=== PATIENT | male | born 1950 | race Caucasian/White ===

== ENCOUNTER 2023-05-18 09:05 | Outpatient (CLI) | payer MEDICARE, BC, SELFPAY | END 2023-05-18 09:06 | disposition home or self-care (01) | LOC: AMB 05-23 09:24 | PROVIDERS: PCP Family Medicine; Visit Provider Family Medicine | DX: M62.81 Muscle weakness (generalized) (principal) | CPT/HCPCS: A0998 ==

== ENCOUNTER 2023-05-25 09:02 | Outpatient (CLI) | payer MEDICARE, BC, SELFPAY ==
--- OUTSIDE RECORDS SUMMARY | 2023-05-26 10:55 | XMS_ITS | Clinical Summary ---
Author Name Unknown Organization [employer] [facility] Address [place], [place] [address] Care Team Providers Care Corn Husker Machine Operator Name Role Phone Meng Murray MD Primary Care Provider Lis Roberts RD Unavailable [phone] Unavailable [phone] Allergies Active Allergy Reactions Criticality Noted Date [...] mouth once daily. 0 07/29/19 17 Active Kngui-5-YBN-EPA-Fi sh Oil (FISH OIL) 1,000 mg (120 mg-180 mg) capIndications:[facility] care maintenance Daily. 0 07/29/19 17 Active [...] be used to read blood sugars per assistant professor of dietetics's directions. 6 Each 3 04/23/20 23 Active [...] Encounters Date Type Department Care Team Description 05/25/2023 Telephone [facility] [address] [place] [address] Meng Murray MD Prior Authorization (continuous glucose monitor SENSOR KIT (FreeStyle Hafsa 14 Day Sensor)) 05/22/2023 Refill [facility] [address] [place] [address] Meng Murray MD Refill Request (Warfarin) 05/07/2023 8:00 AM GREENHOUSE TECHNICIAN Orders Only [facility] [address] [place] [address] [facility] 05/07/2023 Anticoagulation (warfarin) [facility] [address] [place] [address] [facility] Anticoagulation (Lab only/) 05/07/2023 Travel 05/06/2023 9:00 AM GREENHOUSE TECHNICIAN Patient Outreach [address] [place] [address] Diabetes (DM education) 05/06/2023 Travel 04/23/2023 3:45 PM GREENHOUSE TECHNICIAN Office Visit [address] [address] Meng Murray MD Coordination Problems (Has had 2 falls since the beginning of March, two which pretty worrisome. Will get a wobbly sensation in his legs; a weakness. ) 04/22/2023 Travel 04/22/[address] [address] Meng Murray MD Refill Request (Freestyle Hafsa 14 Day Sensor) 04/06/2023 7:40 AM GREENHOUSE TECHNICIAN Orders Only [address] [address] Lab[facility] [place] 04/06/2023 Anticoagulation (warfarin) [facility] [address] [place] [address] 1[facility] Anticoagulation 04/06/2023 Travel 04/01/2023 Travel 03/23/2023 8:10 AM GREENHOUSE TECHNICIAN Orders Only [address] [address] Lab[facility] [place] 03/23/2023 Anticoagulation (warfarin) [facility] [address] [place] [address] 1[facility] Anticoagulation 03/23/2023 Travel 02/24/2023 Refill [facility] [address] [place] [address] Meng Murray MD Refill Request (Warfarin) 02/23/2023 8:20 AM CDT Orders Only [address] [address] Lab[facility] [place] 02/23/2023 Anticoagulation (warfarin) [facility] [address] [place] [address] 1[facility] Anticoagulation 02/23/2023 Travel from Last 3 Months Immunizations Name Administration Dates Next Due AMB Influenza, IIV3 (Age >=3 years)(Flu Clinic Only) 01/29/2009 COVID-19 vaccine (Pfizer-Bio NTech 30mcg/0.3mL) 12YO+ BIVALENT PF, MDV 01/13/2022 COVID-19 vaccine (Pfizer-Bio NTech 30mcg/0.3mL) PF, MDV 04/08/2021 Influenza A [...] Comments Blood Pressure 154/73 04/23/2023 3:34 PM GREENHOUSE TECHNICIAN Pulse 94 04/23/2023 3:34 PM GREENHOUSE TECHNICIAN Temperature 36.2 ??C (97.1 ??F) 04/08/2021 1 0:44 AM GREENHOUSE TECHNICIAN Respiratory Rate 20 07/31/2010 8:30 AM CDT Oxygen Saturation 97% 04/23/2023 3:34 PM GREENHOUSE TECHNICIAN Inhaled Oxygen Concentration - - Weight 106.8 kg (235 lb 6.4 oz) 04/23/2023 3:34 PM GREENHOUSE TECHNICIAN Height 179.1 cm (5' 10.5) 04/23/2023 3:34 PM CS T Body Mass Index 33.3 04/23/2023 3:34 PM GREENHOUSE TECHNICIAN Plan of Treatment Upcoming Encounters Date Type Department Care Team (Late st Contact Info) Description 06/01/2023 9:00 AM GREENHOUSE TECHNICIAN Phone Office Visit [address] [facility] [place] [address] [place] [address] 06/01/2023 2:55 PM GREENHOUSE TECHNICIAN Office Visit [facility] [address] [place] [address] Meng Murray MD [address] [place] [address] 06/08/2023 8:45 AM GREENHOUSE TECHNICIAN Orders Only [facility] [address] [place] [address] Lab, [facility] 06/11/2023 9:00 AM GREENHOUSE TECHNICIAN Telemedicine [facility] [address] [place] [address] Fredy Cespedes MD [address] [place] [address] 07/13/2023 8:00 AM CDT Orders Only [facility] [address] [place] [address] [place] 07/15/2023 8:00 AM CDT Office Visit [facility] [address] [place] [address] Meng Murray MD [address] [place] [address] Health Maintenance Due Date Last Done Comments [...] Diagnosis Comments INR,POCT Routine 05/07/2023 8:04 AM GREENHOUSE TECHNICIAN History of DVT (deep vein thrombosis) Anticoagulation monitoring, INR range 1.5-2.5 INR,POCT Routine 04/06/2023 7:49 AM GREENHOUSE TECHNICIAN History of DVT (deep vein thrombosis) Anticoagulation monitoring, INR range 1.5-2.5 INR,POCT Routine 03/23/2023 8:22 AM GREENHOUSE TECHNICIAN History of DVT (deep vein thrombosis) Anticoagulation monitoring, INR range 1.5-2.5 INR,POCT Routine 02/23/2023 8:15 AM CDT History of DVT (deep vein thrombosis) Anticoagulation monitoring, INR range 1.5-2.5 from Last 3 Months Results * (ABNORMAL) INR,POCT (05/07/2023 8:04 AM GREENHOUSE TECHNICIAN) Only the most recent of4 resultswithin the time period is included. INR 1.9(H) <1.3 05/07/2023 8:06 AM GREENHOUSE TECHNICIAN [facility] Blood BLOOD SPECIMEN / Unknown 05/07/2023 8:04 AM GREENHOUSE TECHNICIAN 05/07/2023 8:06 AM GREENHOUSE TECHNICIAN Narrative [facility] - 05/07/2023 8:06 AM GREENHOUSE TECHNICIAN ?Therapeutic Range 2.0-3.0 for most anticoagulated patients 2.5-3.5 or 4.0 for high risk patients Meng Murray MD LABORATORY [facility] [address] [place] [address], from Last 3 Months Care Teams Corn Husker Machine Operator Relationship Specialty Start Date End Date Meng Murray MD [address] [place] [address] PCP - General Family Practice 07/02/[address] [place] [address] Calcine Furnace Tender Piercing Specialist 10/23/[address] [place] [address] Calcine Furnace Tender Piercing Specialist 05/06/23 11/02/23
== END 2023-05-25 09:03 | disposition home or self-care (01) ==
LOC: AMB 05-26 10:52
PROVIDERS: PCP Family Medicine; Visit Provider Family Medicine
DX: S29.9XXA Unspecified injury of thorax, initial encounter (principal); W10.9XXA Fall (on) (from) unspecified stairs and steps, initial encounter; Y92.59 Other trade areas as the place of occurrence of the external cause
CPT/HCPCS: A0425; A0429

== ENCOUNTER 2023-05-25 09:27 | Emergency (ER) | payer MEDICARE, BC, SELFPAY ==
[2023-05-25 09:33] VITALS: BP 127/70; PULSE 94; RESP 18; TEMP 36.1; O2SAT 93; BMI 32.8
--- NOTE | 2023-05-25 10:12 | ED.GENADULT ---
HPI - General Adult General Chief complaint: Fall/Minor Trauma Stated complaint: Fall Time Seen by Provider: 05/25/23 09:42 Source: patient Mode of arrival: EMS Limitations: no limitations History of Present Illness HPI narrative: 73-year-old male coming in today complaining of a fall. Patient states that he has been falling frequently. Today he stumbled on the steps going into the garage. He states that he started falling forward so he put his hand out into a pile of Bhavesh decorations and he was able to push himself back up against the wall. Once his back hit the wall he slid down to the floor. He did not hit his head or lose consciousness. He did lacerated the palm of his hand. He denies other injury. However, EMS was called because once the patient is down he is unable to get back up again. He states that he fell last week did not suffer any injuries, EMS was called at that time as well just to help get him up again. His is wondering if there is someone that can come into their home to assess for things that they can do to make the home safer for him. Related Data Home Medications Medication Instructions Recorded Confirmed atorvastatin 40 mg tablet 40 mg PO DAILY 05/25/23 05/25/23 insulin glargine 100 unit/mL (3 50 unit subcut QPM 05/25/23 05/25/23 mL) subcutaneous pen (Lantus Solostar U-100 Insulin) losartan 50 mg tablet 50 mg PO DAILY 05/25/23 05/25/23 sertraline 100 mg tablet 100 mg PO BID 05/25/23 05/25/23 warfarin 5 mg tablet PO 05/25/23 Allergies Allergy/AdvReac Type Severity Reaction Status Date / Time aspirin Allergy Verified 05/25/23 09:39 doxycycline Allergy Verified 05/25/23 09:39 morphine Allergy Verified 05/25/23 09:39 Review of Systems Status of ROS: Reports: 10 or more systems reviewed and unremarkable except as noted in History and below [facility] Social History Smoking Status: Never smoker Do you use any of these nicotine containing products: None How often do you have a drink containing alcohol: never How often do you have six or more drinks on one occasion: Never AUDIT-C Alcohol total score: 0 Non-prescribed substance use: denies use Exam Narrative: Exam Narrative: Well-nourished well-developed patient in no acute distress. Alert and oriented x3. Answers questions appropriately. Mood and affect are appropriate. Thoughts are goal oriented and rational. No tangential or magical thinking noted. Patient speaks in full sentences without needing to catch his breath. Speech is not slurred or pressured. GCS is 15. HEENT: Normocephalic atraumatic. Pupils are equally round reactive to light. Extraocular muscles are intact. Conjunctivae are moist without any icterus noted. Moist mucous membranes. Neck is soft. Extremities: Patient has she 2 cm laceration on the medial palmar surface of the right hand. He has full range of motion of all his fingers. The laceration extends into the subcutaneous tissue but does not penetrate through the subcutaneous tissue. There are no tendons or bones visible. Skin: Well perfused without any obvious rashes. He does have scattered bruising. Back: Deferred, patient did not feel this was necessary. Const: Vital Signs, click to edit/add: Vital Signs - 24 hr 05/25/23 09:33 05/25/23 10:40 Temperature 97.0 F L Pulse Rate [Right Pulse Oximeter] 94 92 Respiratory Rate 18 14 Blood Pressure [Ri ght Upper Arm] 127/70 121/67 Pulse Oximetry 93 Oxygen Delivery Me thod Room Air Course Course ED Course: The laceration was anesthetized with lidocaine. The wound was explored and cleaned. Wound sutured with 3-0 Ethilon interrupted sutures. Vital Signs Vital signs: Initial Vital Signs Temperature 97.0 F L 05/25/23 09:33 Temperature Source Temporal Artery Scan 05/25/23 09:33 Pulse Rate 94 05/25/23 09:33 Respiratory Rate 18 05/25/23 09:33 Blood Pressure 127/70 05/25/23 09:33 Blood Pressure Mean 89 05/25/23 09:33 Blood Pressure Position Sitting 05/25/23 09:33 Pulse Oximetry 93 05/25/23 09:33 Oxygen Delivery Method Room Air 05/25/23 09:33 Vital Signs Temperature 97.0 F L 05/25/23 09:33 Pulse Rate 94 05/25/23 09:33 Respiratory Rate 18 05/25/23 09:33 Blood Pressure 127/70 01/29/24 09:33 Pulse Oximetry 93 05/25/23 09:33 Oxygen Delivery Method Room Air 05/25/23 09:33 Temperature 97.0 F L 05/25/23 09:33 Pulse Rate 92 05/25/23 10:40 Respiratory Rate 14 05/25/23 10:40 Blood Pressure 121/67 05/25/23 10:40 Pulse Oximetry 93 05/25/23 09:33 Oxygen Delivery Method Room Air 05/25/23 09:33 Medical Decision Making MDM Narrative Medical decision making narrative: 73-year-old male with frequent falls, laceration to the palm of the hand sutured per above. Tetanus shot updated in 2021. director workers compensation consult to discussed safety in the home. Discharge Plan Discharge Clinical Impression: Laceration, Fall Patient Disposition: Home w/ Parent or Adult Condition: Improved Additional Instructions: Keep wound clean and dry. Okay to shower like you normally would, however, do not soak the hand. Suture should be removed in approximately 1 week with your primary care provider. Look for signs of infection which include increasing redness or purulent drainage from the wound. If this occurs return to the ER or see your primary care provider right away. Change dressing once daily. Change dressing more frequently if it becomes dirty. Prescriptions: No Action losartan 50 mg tablet 50 mg PO DAILY atorvastatin 40 mg tablet 40 mg PO DAILY sertraline 100 mg tablet 100 mg PO BID warfarin 5 mg tablet PO insulin glargine [Lantus Solostar U-100 Insulin] 100 unit/mL (3 mL) insulin pen 50 unit subcut QPM Follow Up/Referrals: Meng Murray MD [Primary Care Provider] - Stand Alone Forms: [employer] Info Instructions
--- OUTSIDE RECORDS SUMMARY | 2023-05-25 10:18 | XMS_ITS | Clinical Summary ---
Author Name Unknown Organization [facility] Address [place], [place] [address] Care Team Providers [employer] Name Role Phone Meng Murray MD Primary Care Provider Lis Roberts RD Unavailable Lis Roberts RD Unavailable [phone] Allergies Active Allergy Reactions Criticality Noted Date Comments Aspirin Aspirin Contraindica tion (for reporting) 05/11/2006 Doxycycline Vomiting 11/29/2007 Morphine Diaphoresis,GI Upset 01/01/2007 Medications Medication Sig Dispensed Refills Start Date End Date Status KENNY 180 MG TAB take 1 tablet (180 mg) by oral route once daily 30 11 09/12/19 09 Active cholecalciferol (VITAMIN D) 1,000 unit capsule Take 2 capsules by mouth once daily. 0 08/01/19 11 Active multivitamin (MVI) tablet Take 2 tablets by mouth once daily. 0 07/29/19 17 Active [id number]-[id number]-[id number] sh Oil (FISH OIL) 1,000 mg (120 mg-180 mg) capIndications:[facility] care maintenance Daily. 0 07/29/19 17 Active flash glucose scanning reader (FREESTYLE HAFSA 14 DAY READER) miscIndications:Ty pe 2 diabetes mellitus with complication, with long-term current use of insulin (HC) As directed. 1 Each 0 10/05/19 19 Active LORazepam (ATIVAN) 0.5 mg tabIndications:Gen eralized anxiety disorder TAKE ONE TABLET BY MOUTH ONCE DAILY NEEDED FOR SEVERE ANXIETY 20 Tablet 0 04/15/20 21 Active CPAPIndications:OS A (obstructive sleep apnea) CPAP machine for home use at pressure 13 cm/H2O, full face mask x1/3month with a full face cushion x1/mo 1 Each 11 04/16/20 22 Active fluticasone (50 mcg per actuation) nasal solution (FLONASE)Indicatio ns:Allergy, sequela INSTILL 1 SPRAY INTO BOTH NOSTRILS ONCE DAILY 48 g 1 11/01/19 23 Active SUMAtriptan (IMITREX) 25 mg tabletIndications: Migraine without status migrainosus, not intractable, unspecified migraine type TAKE 1 TABLET BY MOUTH EVERY 2 HOURS IF NEEDED FOR MIGRAINE. MAX DOSE: 200MG PER 24 HRS. 27 Tablet 1 11/27/19 23 Active atorvastatin (LIPITOR) 40 mg tabletIndications: Type 2 diabetes mellitus with complication, with long-term current use of insulin (HC),Hyperlipidemi a, unspecified hyperlipidemia type Take 1 Tablet (40 mg) by mouth once daily. 90 Tablet 3 01/15/20 23 Active HumaLOG KwikPen Insulin 100 unit/mL inpn penIndications:Typ e 2 diabetes mellitus with complication, with long-term current use of insulin (HC) Product desired: HUMALOG KWIKPEN INJECT 7 UNITS SUBCUTANEOUSLY PER 15GMS OF CARB AT BREAKFAST/4 UNITS PER 15GMS AT LUNCH/ SUPPER PLUS CORRECTION SCALE. MAX 120 UNITS TOTAL PER DAY 60 mL 3 01/15/20 23 Active losartan (COZAAR) 50 mg tabletIndications: Hypertension, unspecified type Take 1 Tablet (50 mg) by mouth once daily. 90 Tablet 3 01/15/20 23 Active sertraline (ZOLOFT) 100 mg tabletIndications: Acute deep vein thrombosis (DVT) of tibial vein of both lower extremities (HC),Anxiety and depression 2 tabs oral every day 180 Tablet 3 01/15/20 23 Active pen needle, diabetic (UltiCare Pen Needle) 31 gauge x 5/16Indications:I nsulin dependent type 2 diabetes mellitus (HC) USE FOR ADMINISTERING INSULIN AT HOME 4 TIMES DAILY OR DIRECTED 400 Each 3 01/19/20 23 Active hyoscyamine sublingual (LEVSIN SL) 0.125 mg sublIndications:Ir ritable bowel syndrome with diarrhea TAKE 1 TABLET BY MOUTH EVERY 4 HOURS IF NEEDED FOR COLIC 100 Tablet 2 02/06/20 23 Active continuous glucose monitor SENSOR KIT (FreeStyle Hafsa 14 Day Sensor)Indications :Type 2 diabetes mellitus with complication, with long-term current use of insulin (HC) To be used to read blood sugars per automobile or truck rental dispatcher's directions. 6 Each 3 04/23/20 23 Active Lantus Solostar U-100 Insulin 100 unit/mL (3 mL) penIndications:Typ e 2 diabetes mellitus with complication, with long-term current use of insulin (HC) Inject 50 units subcutaneous before bedtime. Product desired: LANTUS SOLOSTAR 60 mL 1 04/23/20 23 Active FreeStyle Hafsa 3 Sensor for continuous blood glucose monitor (CGM)Indications:T ype 2 diabetes mellitus with complication, with long-term current use of insulin (HC) Wear each for 14 days 2 Each 12 05/06/19 24 Active warfarin (COUMADIN) 5 mg tabletIndications: History of DVT (deep vein thrombosis),Antico agulation monitoring, INR range 1.5-2.5,Acute deep vein thrombosis (DVT) of tibial vein of both lower extremities (HC),Deep vein thrombosis (DVT) of both lower extremities, unspecified chronicity, unspecified vein (HC) TAKE 1/2 TABLET (2.5MG) BY MOUTH EVERY THURSDAY AND THURSDAY and 1 TABLET(5MG) ALL OTHER DAYS IN THE EVENING OR DIRECTED 80 Tablet 1 05/22/19 24 Active warfarin (COUMADIN) 5 mg tabletIndications: History of DVT (deep vein thrombosis),Antico agulation monitoring, INR range 1.5-2.5,Acute deep vein thrombosis (DVT) of tibial vein of both lower extremities (HC),Deep vein thrombosis (DVT) of both lower extremities, unspecified chronicity, unspecified vein (HC) Take by mouth 2.5 mg (5 mg x 0.5 tablet) every Thu, Thu; 5 mg (5 mg x 1 tablet) all other days in the evening OR as directed 78 Tablet 0 02/25/20 23 024 Discontinued Active Problems Problem Noted Date Diagnosed Date Anxiety and depression 01/14/2023 Type 2 diabetes mellitus wit h complication, with long-term current use of insulin 10/07/2021 History of DVT (deep vein thrombosis) 07/08/2021 Chronic insomnia 01/14/2019 MIGUEL 12/17/2007 AHI-50 01/08/2017 Deep vein thrombosis (DVT) of both lower extremi ties 05/05/2016 Anticoagulation monitoring, INR range 1.5-2.5 Overview: Target range 1.8-2.3 Erectile dysfunction 12/12/2009 Mixed hyperlipidemia 05/22/2009 Primary hypertension 05/22/2009 IRRITABLE BOWEL SYNDROME 12/05/2004 Migraine, unspecified, witho ut mention of intractable migraine without mention of status migrainosus Resolved Problems Problem Noted Date Diagnosed Date Resolved Date Seasonal affective disorder 03/11/2021 01/14/2023 Short sleeper 03/13/2020 07/02/2020 Acute deep vein thrombosis ( DVT) of tibial vein of both lower extremities 07/27/2017 Hand pain 05/02/2013 01/18/2020 Gastritis 03/09/2013 10/07/2021 Overview: EGD 02/2013 gastritis Vitamin D deficiency 03/06/2010 021 Deep vein thrombosis of bila teral lower extremities 02/11/2008 01/18/2020 Sleep Apnea 12/17/2007 AHI-50 12/24/2007 01/08/2017 Acute prostatitis 07/23/2007 11/02/2007 Acute prostatitis 07/23/2007 01/18/2020 DIVERTICULITIS COLON 12/05/2004 021 Anemia 12/05/2004 01/18/2020 DIABETES 03/18/2002 10/07/2021 Generalized anxiety disorder 01/14/2023 Encounters Date Type Department Care Team Description 05/22/2023 Refill [facility] [address] [place] [address] Meng Murray MD Refill Request (Warfarin) 05/07/2023 8:00 AM TATTOO AND BODY ARTIST Orders Only [facility] [address] [place] [address] [place] [facility] 05/07/2023 Anticoagulation (warfarin) [facility] [address] [place] [address] 1[facility] [place] [facility] Anticoagulation (Lab only/) 05/07/2023 Travel 05/06/2023 9:00 AM TATTOO AND BODY ARTIST Patient Outreach [facility] [address] [address] Diabetes (DM education) 05/06/2023 Travel 04/23/2023 3:45 PM TATTOO AND BODY ARTIST Office Visit [facility] [address] [place] [address] Meng Murray MD Coordination Problems (Has had 2 falls since the beginning of March, two which pretty worrisome. Will get a wobbly sensation in his legs; a weakness. ) 04/22/2023 Travel 04/22/2023 Refill [facility] [address] [place] [address] Meng Murray MD Refill Request (Freestyle Hafsa 14 Day Sensor) 04/06/2023 7:40 AM TATTOO AND BODY ARTIST Orders Only [facility] [address] [place] [address] Lab[facility] [place] [facility] 04/06/2023 Anticoagulation (warfarin) [facility] [address] [place] [address] 1[facility] [place] [facility] Anticoagulation 04/06/2023 Travel 04/01/2023 Travel 03/23/2023 8:10 AM TATTOO AND BODY ARTIST Orders Only [facility] [address] [place] [address] Lab[facility] [place] [facility] 03/23/2023 Anticoagulation (warfarin) [facility] [address] [facility] [address] 1[facility] [place] [facility] Anticoagulation 03/23/2023 Travel 02/24/2023 Refill [facility] [address] [place] [address] Meng Murray MD Refill Request (Warfarin) 02/23/2023 8:20 AM CDT Orders Only [facility] [address] [place] [address] Lab[facility] [place] [facility] 02/23/2023 Anticoagulation (warfarin) [facility] [address] [place] [address] 1[facility] [place] [facility] Anticoagulation 02/23/2023 Travel from Last 3 Months Immunizations Name Administration Dates Next Due AMB Influenza, IIV3 (Age >=3 years)(Flu Clinic Only) 01/29/2009 COVID-19 vaccine (Pfizer-Bio NTech 30mcg/0.3mL) 12YO+ BIVALENT PF, MDV 01/13/2022 COVID-19 vaccine (Buck-Bio NTech 30mcg/0.3mL) PF, MDV 04/08/2021 Influenza A (H1N1), Inactivated 04/13/2009 Influenza A (H1N1), Inactiva ana laura (Age >=3 Years) 04/13/2009 Influenza, High-dose Inactivated 016,2015,01/03/2015,2013 Influenza, High-dose Quadriv alent Inactivated 02/06/2022 Influenza, IIV3 (Age 6-35 mos) 02/17/2011,2009 Influenza, IIV3 (Age >=3 years) 01/11/20 13,01/27/2012,02/17/2011,2009,01/29/2009,02/10/2008,03/02/2007,1 05/07/2005,02/10/2005,02/10/2004, 003 Influenza, Inactivated AIIV4 (Age 65+ Years) Preserv Free 01/14/2023,01/07/2021,01/18/2020 Influenza, Inactivated IIV3 (Age 65+ Years) Preserv Free 01/05/2019,01/05/2018,01/13/2017 Pneumococcal Conj 20-valent (Prevnar 20) 01/14/2023 Pneumococcal Poly,23-Valent (Pneumovax) 04/04/2013,05/28/2000,02/04/1999 Pneumococcal conj 13-Valent (Prevnar 13) 07/13/2014 Td (Age >=7 Years) 10/07/2021,07/16/2000 Tdap 03/18/2011 Zoster (Shingrix-RZV, recombinant) 07/14/2018, Zoster (Zostavax-ZVL, live) 09/09/2010 Family History Medical History Relation Name Comments Allergies Brother 1 3 brothers Cancer Brother 2 kidney Atrial fibrillation Brother 3 Allergies Daughter Diabetes Father Other Father of multipl e myeloma at 72 Allergies Mother Other Mother chronic lymphoc ytic leukemia Genetic Other Father- multipl e myeloma~DM~Mother- CLL Diabetes Paternal Grandmother Allergies Son Psychiatric illness Son depressi on Relation Name Status Comments Brother 1 3 brothers Alive Brother 2 Alive Brother 3 Alive Daughter Alive Father Maternal Aunt Maternal Grandfather Maternal Grandmother Maternal Uncle Mother Alive Other Paternal Aunt Paternal Grandfather Paternal Grandmother Paternal Uncle Son Alive Social History Tobacco Use Types Packs/Day Years Used Date Smoking Tobacco: Former Cigarettes 1 0 04/27/1966 - 04/27/1967 Smokeless Tobacco: Never Tobacco Cessation:Counseling Given: No Comments:8 months when 18 years old Alcohol Use Standard Drinks/Week Comments No 0 (1 standard drink = 0.6 oz pur e alcohol) PHQ-2 Answer Date Recorded PHQ-2 TOTAL SCORE 4 01/14/2023 Social Connections Answer Date Recorded Frequency of Communication with Friends and Fami ly 0 04/22/2023 Financial Resource Strain Answer Date R ecorded Difficulty of Paying Living Expenses 3 04/22/2023 Difficulty of Paying Living Expenses Not on file 04/22/2023 Food Insecurity Answer Date Recorded Worried About Running Out of Food in the Last Ye ar 1 04/22/2023 Transportation Needs Answer Date Record ed Lack of Transportation (Medical) 1 04/22/2023 Housing Stability Answer Date Recorded Unable to Pay for Housing in the Last Year 1 04/22/2023 Sex and Gender Information Value Date Recorded Sex Assigned at Not on file Gender Identity Not on file Sexual Orientation Not on file Obstetrics History Last Filed Vital Signs Vital Sign Reading Time Taken Comments Blood Pressure 154/73 04/23/2023 3:34 PM [employer] ARTIST Pulse 94 04/23/2023 3:34 PM [employer]ATT[employer] AND BODY ARTIST Temperature 36.2 ??C (97.1 ??F) 04/08/2021 1 0:44 AM TATTOO AND BODY ARTIST Respiratory Rate 20 07/31/2010 8:30 AM CDT Oxygen Saturation 97% 04/23/2023 3:34 PM TATT[employer] AND BODY ARTIST Inhaled Oxygen Concentration - - Weight 106.8 kg (235 lb 6.4 oz) 04/23/2023 3:34 PM TATTOO AND BODY ARTIST Height 179.1 cm (5' 10.5) 04/23/2023 3:34 PM CS T Body Mass Index 33.3 04/23/2023 3:34 PM TATTOO AND BODY ARTIST Plan of Treatment Upcoming Encounters Date Type Department Care Team (Late st Contact Info) Description 06/01/2023 9:00 AM TATTOO AND BODY ARTIST Phone Office Visit [facility] [address] [place] [address] Lis Roberts, RD [address] [address] 06/08/2023 8:45 AM TATTOO AND BODY ARTIST Orders Only [facility] [address] [place] [address] [place] 06/11/2023 9:00 AM TATT[employer] AND BODY ARTIST Telemedicine [facility] [address] [place] [address] Fredy Cespedes MD [address] [place] [address] 07/13/2023 8:00 AM CDT Orders Only [facility] [address] [place] [address] [place] 07/15/2023 8:00 AM CDT Office Visit [facility] [address] [place] [address] Meng Murray MD [address] [place] [address] Health Maintenance Due Date Last Done Comments Colonoscopy through age 75 09/01/2013 03/04/2013 Medicare Wellness for age 65+ 01/14/2024, 01/13/2022, 04/13/2020, Additional history exists Depression screening for age 12+ 01/18/2024 01/17/2023, 01/16/2023, 01/14/2023, Additional history exists BMI (ht and wt on same day) for age 18+ 04/23/2024 04/23/2023, 01/14/2023, 01/13/2022, Additional history exists Lipids for age 45-75 01/13/2028 01/12/2023, 01/08/2022, 01/07/2021, Additional history exists Tetanus booster 10/08/2031 10/07/2021, 02/26, 07/16/2000 Tdap Completed 03/18/2011 Zoster (shingles) series for age 50+ Completed 07/14/2018, 03/02/2018, 09/09/2010 Hepatitis C screening for ag e 18-79 Completed 02/08/2019 Influenza for age 65+ Completed 01/14/2023 , 02/06/2022, 01/07/2021, Additional history exists Pneumococcal series for age 65+ Completed 01/14/2023, 07/13/2014, 04/04/2013, Additional history exists COVID-19 vaccine series Completed 03/02/20, 01/13/2022, 09/10/2021, Additional history exists Procedures Procedure Name Priority Date/Time Associated Diagnosis Comments INR,POCT Routine 05/07/2023 8:04 AM T[employer] AND BODY ARTIST History of DVT (deep vein thrombosis) Anticoagulation monitoring, INR range 1.5-2.5 INR,POCT Routine 04/06/2023 7:49 AM TATT[employer] AND BODY ARTIST History of DVT (deep vein thrombosis) Anticoagulation monitoring, INR range 1.5-2.5 INR,POCT Routine 03/23/2023 8:22 AM TATTOO AND BODY ARTIST History of DVT (deep vein thrombosis) Anticoagulation monitoring, INR range 1.5-2.5 INR,POCT Routine 02/23/2023 8:15 AM CDT History of DVT (deep vein thrombosis) Anticoagulation monitoring, INR range 1.5-2.5 from Last 3 Months Results * (ABNORMAL) INR,POCT (05/07/2023 8:04 AM TATTOO AND BODY ARTIST) Only the most recent of4 resultswithin the time period is included. INR 1.9(H) <1.3 05/07/2023 8:06 AM TATTOO AND BODY ARTIST [facility] Blood BLOOD SPECIMEN / Unknown 05/07/2023 8:04 AM TATTOO AND BODY ARTIST 05/07/2023 8:06 AM TATTOO AND BODY ARTIST Narrative [facility] - 05/07/2023 8:06 AM TATTOO AND BODY ARTIST ?Therapeutic Range 2.0-3.0 for most anticoagulated patients 2.5-3.5 or 4.0 for high risk patients Meng Murray MD LABORATORY [facility] [address] [place] [address], from Last 3 Months Care Teams [employer] Relationship Specialty Start Date End Date Meng Murray MD [address] [place] [address] PCP - General Family Practice 07/02/[address] [address] [employer] Maintainer [employer] 10/23/[address] [address] [employer] Maintainer [employer] 05/06/23 11/02/23
[2023-05-25 10:40] VITALS: BP 121/67; PULSE 92; RESP 14
--- NOTE | 2023-05-25 10:49 | PC.SOCIAL ---
Discharge planning: Met with pt and in the ED regarding 's request for a home evaluation. Discussed option of a home safety assessment with the hospital OT. is pleased with this and states pt has a PT through the same organization. signed order for home safety eval and referral was given to the OT Department for follow up. and pt had not other social work concerns.
== END 2023-05-25 11:10 | disposition home or self-care (01) ==
PROVIDERS: Emergency Provider Family Medicine; PCP Family Medicine
DX: S61.411A Laceration without foreign body of right hand, initial encounter (principal); W01.119A Fall on same level from slipping, tripping and stumbling with subsequent striking against unspecified sharp object, initial encounter
CPT/HCPCS: 12001; 99283; 99284

== ENCOUNTER 2023-05-29 13:35 | Outpatient (RCR) | payer MEDICARE, BC, SELFPAY | END 2023-09-26 23:59 | disposition home or self-care (01) | PROVIDERS: PCP Family Medicine; Visit Provider Family Medicine | DX: Z91.81 History of falling (principal); Z51.89 Encounter for other specified aftercare ==

== ENCOUNTER 2023-06-04 09:00 | Outpatient (RCR) | payer MEDICARE, BC, SELFPAY ==
--- NOTE | 2023-05-29 13:22 | REH.OT ---
Order received orders for Outpatient home safety eval which was completed today. The patient has had 3 more falls, 2 of which have been in his garage in attempting to go to appointments. Recommending HHC OT/PT. Patient is scheduled with PCP, Dr. Murray on 06/01/23 to have stitches removed. Message left with [facility] requesting patient have face to face orders for HHC at that appointment. Full report for home safety eval to follow.
== END 2023-08-28 10:39 | disposition home or self-care (01) ==
PROVIDERS: PCP Family Medicine; Visit Provider Family Medicine
DX: Z51.89 Encounter for other specified aftercare (principal); R29.6 Repeated falls; W19.XXXA Unspecified fall, initial encounter; R26.81 Unsteadiness on feet; M62.81 Muscle weakness (generalized)
CPT/HCPCS: 97110; 97112; 97161; 97165; 97530; 97535

== ENCOUNTER 2023-06-09 22:24 | Emergency (ER) | payer MEDICARE, BC, SELFPAY ==
[2023-06-09 22:32] LABS: Glucose, Point-of-Care* 141 mg/dl (60-115)
[2023-06-09 22:35] VITALS: BP 131/92; PULSE 121; RESP 20; TEMP 37; O2SAT 98; BMI 31.8
[2023-06-10] VITALS: BP 124/82; PULSE 95; RESP 20; TEMP 37; O2SAT 98
--- OUTSIDE RECORDS SUMMARY | 2023-06-10 00:12 | XMS_ITS | Clinical Summary ---
Author Name Unknown Organization [facility] [facility] Address [place], [place] [address] Care Team Providers Care Premium Auditor Name Role Phone Meng Murray MD Primary Care Provider Lis Roberts RD Unavailable [phone] Unavailable [facility] [place] Unavailable Allergies Active Allergy Reactions Criticality Noted Date Comments Aspirin Aspirin Contraindica tion (for reporting) 05/11/2006 Doxycycline Vomiting 11/29/2007 Morphine Diaphoresis,GI Upset 01/01/2007 Medications Medication Sig Dispensed Refills Start Date End Date Status KENNY 180 MG TAB take 1 tablet (180 mg) by oral route once daily 30 11 09/12/19 09 Active flash glucose scanning reader (FREESTYLE HAFSA [...] daily. 90 Tablet 3 01/15/20 23 Active losartan (COZAAR) 50 [...] be used to read blood sugars per professor of theology's directions. 6 Each 3 04/23/20 23 Active FreeStyle Hafsa 3 Sensor [...] DIRECTED 80 Tablet 1 05/22/19 24 Active HumaLOG KwikPen Insulin 100 unit/mL in penIndications:Typ e 2 diabetes mellitus with complication, with long-term current use of insulin (HC) Product desired: HUMALOG KWIKPEN INJECT 5 UNITS SUBCUTANEOUSLY PER 15GMS OF CARB AT BREAKFAST/3 UNITS PER 15GMS AT LUNCH/ 4:!5 grams at SUPPER PLUS CORRECTION SCALE. MAX 120 UNITS TOTAL PER DAY 60 mL 3 06/01/19 24 Active cholecalciferol (Vitamin D) 1,000 unit capsule Take 1 Capsule (1,000 units) by mouth once daily. 0 06/08/19 24 Active multivitamin (MVI) tablet Take 1 Tablet by mouth once daily. 0 06/08/19 24 Active Fhzcq-1-EEG-EPA-Fi sh Oil (Fish OiL) 1,000 mg (120 mg-180 mg) capIndications:[facility] care maintenance Take 2 Capsules (2,000 mg) by mouth once daily. 0 06/08/19 24 Active Lantus Solostar U-100 Insulin 100 unit/mL (3 mL) penIndications:Typ e 2 diabetes mellitus with complication, with long-term current use of insulin (HC) Inject 46 units subcutaneous before bedtime. Product desired: LANTUS SOLOSTAR 60 mL 1 06/08/19 24 Active cholecalciferol (VITAMIN D) 1,000 unit capsule Take 2 capsules by mouth once daily. 0 08/01/19 11 024 Discontinued(*M edication adjustment) multivitamin (MVI) tablet Take 2 tablets by mouth once daily. 0 07/29/19 17 024 Discontinued(*M edication adjustment) Woskw-6-GYZ-EPA-Fi sh Oil (FISH OIL) 1,000 mg (120 mg-180 mg) capIndications:[facility] care maintenance Daily. 0 07/29/19 17 024 Discontinued(*M edication adjustment) HumaLOG KwikPen Insulin 100 unit/mL inpn penIndications:Typ e 2 diabetes mellitus with complication, with long-term current use of insulin (HC) Product desired: HUMALOG KWIKPEN INJECT 7 UNITS SUBCUTANEOUSLY PER 15GMS OF CARB AT BREAKFAST/4 UNITS PER 15GMS AT LUNCH/ SUPPER PLUS CORRECTION SCALE. MAX 120 UNITS TOTAL PER DAY 60 mL 3 01/15/20 23 024 Discontinued(*M edication adjustment) warfarin (COUMADIN) 5 mg tabletIndications: History of DVT (deep vein thrombosis),Antico agulation monitoring, INR range 1.5-2.5,Acute deep vein thrombosis (DVT) of tibial vein of both lower extremities (HC),Deep vein thrombosis (DVT) of both lower extremities, unspecified chronicity, unspecified vein (HC) Take by mouth 2.5 mg (5 mg x 0.5 tablet) every Mon, Yeni; 5 mg (5 mg x 1 tablet) all other days in the evening OR as directed 78 Tablet 0 02/25/20 23 024 Discontinued Lantus Solostar U-100 Insulin 100 unit/mL (3 mL) penIndications:Typ e 2 diabetes mellitus with complication, with long-term current use of insulin (HC) Inject 50 units subcutaneous before bedtime. Product desired: LANTUS SOLOSTAR 60 mL 1 04/23/20 23 024 Discontinued(*M edication adjustment) Active Problems Problem Noted Date Diagnosed Date Frequent falls 06/01/2023 Anxiety and depression 01/14/2023 Type 2 diabetes [...] Encounters Date Type Department Care Team Description 06/08/2023 12:00 PM CORN CUTTER OPERATOR Home Care Visit [facility] [address] [place] [address] Jennifer Jolley, PT PT - OAS[place] START OF CARE 06/08/2023 8:45 AM CORN CUTTER OPERATOR Orders Only [facility] [address] [place] [address] Lab[facility] [place] [facility] 06/08/2023 Telephone [facility] [address] [place] [address] Jennifer Jolley, PT Home Care (requesting verbal orders; medication discrepancies and severe interaction) 06/08/2023 Plan of Care Documentation [facility] [address] [place] [address] 06/08/2023 Anticoagulation (warfarin) [facility] [address] [place] [address] 1[facility] Anticoagulation 06/08/2023 Travel 06/05/2023 1:40 PM CORN CUTTER OPERATOR Procedure Only [facility] [address] [place] [address] Meng Murray MD Suture Removal (Right hand) 06/05/2023 Travel 06/03/2023 Telephone [facility] [address] [place] [address] Mariajose Polanco, DAYAMI 06/03/2023 Travel 06/02/2023 Nurse Triage [facility] [address] [place] [address] Meng Murray MD Home Care 06/01/2023 2:55 PM CORN CUTTER OPERATOR Office Visit [facility] [address] [place] [address] Meng Murray MD Suture Removal (Right hand 5 palm. ); Concerns (Discuss recent falls- what is causing them ) 06/01/2023 9:00 AM CORN CUTTER OPERATOR Phone Office Visit [facility] [address] [place] [address] Phone Visit (DM education- follow up) 06/01/2023 Travel 05/29/2023 Telephone [facility] [address] [place] [address] Meng Murray MD orders ([id number] orders) 05/27/2023 Travel 05/25/2023 Telephone [facility] [address] [place] [address] Meng Murray MD Prior Authorization (continuous glucose monitor SENSOR KIT (FreeStyle Hafsa 14 Day Sensor) Denied) 05/22/2023 Refill [facility] [address] [place] [address] Meng Murray MD Refill Request (Warfarin) 05/07/2023 8:00 AM CORN CUTTER OPERATOR Orders Only [facility] [address] [place] [address] Lab[facility] 05/07/2023 Anticoagulation (warfarin) [facility] [address] [place] [address] 1[facility] Anticoagulation (Lab only/) 05/07/2023 Travel 05/06/2023 9:00 AM CORN CUTTER OPERATOR Patient Outreach [address] [place] [address] Diabetes (DM education) 05/06/2023 Travel 04/23/2023 3:45 PM CORN CUTTER OPERATOR Office Visit [facility] [address] [facility] [place] [address] Meng Murray MD Coordination Problems (Has had 2 falls since the beginning of March, two which pretty worrisome. Will get a wobbly sensation in his legs; a weakness. ) 04/22/2023 Travel 04/22/2023 Refill [facility] [address] [facility] [place] [address] Meng Murray MD Refill Request (Freestyle Hafsa 14 Day Sensor) 04/06/2023 7:40 AM CORN CUTTER OPERATOR Orders Only [facility] [address] [place] [address] Lab[facility] [place] 04/06/2023 Anticoagulation (warfarin) [facility] [address] [place] [address] 1[facility] Anticoagulation 04/06/2023 Travel 04/01/2023 Travel 03/23/2023 8:10 AM CORN CUTTER OPERATOR Orders Only [facility] [address] [place] [address] Lab[facility] 03/23/2023 Anticoagulation (warfarin) [facility] [address] [place] [address] 1[facility] Anticoagulation 03/23/2023 Travel from Last 3 Months Immunizations Name [...] Sign Reading Time Taken Comments Blood Pressure 120/60 06/08/2023 12:54 PM CORN CUTTER OPERATOR Pulse 67 06/08/2023 12:46 PM CORN CUTTER OPERATOR Temperature 36.1 ??C (96.9 ??F) 06/08/2023 1 2:46 PM CORN CUTTER OPERATOR Respiratory Rate 16 06/08/2023 12:4 6 PM CORN CUTTER OPERATOR Oxygen Saturation 98% 06/08/2023 12: 46 PM CORN CUTTER OPERATOR Inhaled Oxygen Concentration - - Weight 104.2 kg (229 lb 12.8 oz) 06/05/2023 1:38 PM CORN CUTTER OPERATOR Height 179.1 cm (5' 10.5) 04/23/2023 3:34 PM CS T Body Mass Index 32.51 04/23/2023 3:34 PM CORN CUTTER OPERATOR Plan of Treatment Upcoming Encounters Date Type Department Care Team (Late st Contact Info) Description 06/11/2023 9:00 AM CORN CUTTER OPERATOR Telemedicine [facility] [address] [place] [address] Fredy Cespedes MD [address] [place] [address] 06/12/2023 3:45 PM CORN CUTTER OPERATOR Home Care Visit [address] [phone] David West, PT [address] [place] [address] 06/16/2023 3:45 PM CORN CUTTER OPERATOR Home Care Visit [address] [phone] David West, PT [address] [place] [address] 06/19/2023 8:45 AM CORN CUTTER OPERATOR Home Care Visit [address] [phone] David West, PT [address] [place] [address] 06/23/2023 9:00 AM CORN CUTTER OPERATOR Home Care Visit [address] [phone] David West, PT [address] [place] [address] 06/26/2023 3:00 AM CORN CUTTER OPERATOR Home Care Visit [address] [phone] David West, PT [address] [place] [address] 06/30/2023 3:00 AM CORN CUTTER OPERATOR Home Care Visit [address] [phone] David West, PT [address] [place] [address] 07/03/2023 3:00 AM CORN CUTTER OPERATOR Home Care Visit [facility] [address] [place] [address] David West, PT [address] [place] [address] 07/06/2023 9:00 AM CDT Phone Office Visit [address] [address] Lis Roberts, RD [address] [place] [address] 07/07/2023 3:00 AM CDT Home Care Visit [facility] [address] [place] [phone] David West, PT [address] [place] [address] 07/13/2023 8:00 AM CDT Orders Only [facility] [address] [place] [address] [place] 07/14/2023 3:00 AM CDT Home Care Visit [facility] [address] [place] [phone] Dvaid West, PT [address] [place] [address] 07/15/2023 8:00 AM CDT Office Visit [facility] [address] [place] [address] Meng Murray MD [address] [place] [address] 07/20/2023 8:00 AM CDT Orders Only [facility] [address] [place] [address] Lab[place] 07/21/2023 3:00 AM CDT Home Care Visit [facility] [address] [place] [address] David West, PT [address] [place], [place] [id number] Health Maintenance Due Date Last Done Comments Colonoscopy through age 75 09/01/2013 03/04/2013 Medicare Wellness for age 65+ 01/15/2024, 01/13/2022, 04/13/2020, Additional history exists Depression screening [...] Priority Date/Time Associated Diagnosis Comments INR,POCT Routine 06/08/2023 8:44 AM CORN CUTTER OPERATOR History of DVT (deep vein thrombosis) Anticoagulation monitoring, INR range 1.5-2.5 INR,POCT Routine 05/07/2023 8:04 AM CORN CUTTER OPERATOR History of DVT (deep vein thrombosis) Anticoagulation monitoring, INR range 1.5-2.5 INR,POCT Routine 04/06/2023 7:49 AM CORN CUTTER OPERATOR History of DVT (deep vein thrombosis) Anticoagulation monitoring, INR range 1.5-2.5 INR,POCT Routine 03/23/2023 8:22 AM CORN CUTTER OPERATOR History of DVT (deep vein thrombosis) Anticoagulation monitoring, INR range 1.5-2.5 from Last 3 Months Results * (ABNORMAL) INR,POCT (06/08/2023 8:44 AM CORN CUTTER OPERATOR) Only the most recent of4 resultswithin the time period is included. INR 2.0(H) <1.3 06/08/2023 8:49 AM CORN CUTTER OPERATOR [facility] Blood BLOOD SPECIMEN / Unknown 06/08/2023 8:44 AM CORN CUTTER OPERATOR 06/08/2023 8:49 AM CORN CUTTER OPERATOR Narrative [facility] - 06/08/2023 8:49 AM CORN CUTTER OPERATOR ?Therapeutic Range 2.0-3.0 for most anticoagulated patients 2.5-3.5 or 4.0 for high risk patients Meng Murray MD LABORATORY Performing Organization Address City/State/[facility] Co de Phone Number [facility] [address] [place] [address], from Last 3 Months Care Teams Premium Auditor Relationship Specialty Start Date End Date Meng Murray MD [address] [place] [address] PCP - General Family Practice 07/02/[address] [place] [address] Unix Developer Medical Staff Physician 10/23/[address] [place] [address] Unix Developer Medical Staff Physician 05/06/23 11/02/23 [place] [id number] [address] [address] 06/02/23
--- NOTE | 2023-06-10 00:25 | ED.GENADULT ---
HPI - General Adult General Date Seen: 06/09/23 Chief complaint: Diabetic Related Problem Stated complaint: Uncontrolled Insulin Time Seen by Provider: 06/09/23 23:27 History of Present Illness HPI narrative: This is a very pleasant 73-year-old gentleman who presented to the ER gurwinder with his by private car for evaluation of inadvertent insulin overdose. He does have insulin-dependent diabetes and normally takes Lantus 46 units every evening after supper. He also takes NovoLog short-acting insulin as a sliding scale with meals. Typically with his dinner meal he would take 20-24 units. [place] he forgot to take his insulin before supper. He ate supper about 545. He normally would take about 20 units of NovoLog. He took his insulin at about 730 or 8, after supper gurwinder. He normally 1st give himself his Lantus. Gurwinder he only had 5 units of Lantus leftover in his previous Lantus injection pen. He gave himself that dose. He then had a new Lantus pen set to administer the additional 41 units of Lantus, to make up his normal 46 unit dose. However, he inadvertently used his NovoLog pen and gave himself 41 units of short-acting NovoLog, instead of the Lantus. The he then also gave himself his Lantus dose. He has a [employer] continuous glucose monitor. Sugar had been running pretty well all day today but went up to about 250 after dinner. Sits inadvertently giving himself the NovoLog sugar came down pretty rapidly from 250 to a low of 53 at home. With that low he was mildly dizzy but not strongly symptomatic. He took some Mountain Dew and a couple of glucose tablets and his sugar came up. His drove him here. Now that he is here he is feeling fine. Blood sugar is currently 146. No other recent illnesses or other problems prior to this inadvertent overdose. Related Data Home Medications Medication Instructions Recorded Confirmed atorvastatin 40 mg tablet 40 mg PO DAILY 05/25/23 05/25/23 insulin glargine 100 unit/mL (3 50 unit subcut QPM 05/25/23 05/25/23 mL) subcutaneous pen (Lantus Solostar U-100 Insulin) losartan 50 mg tablet 50 mg PO DAILY 05/25/23 05/25/23 sertraline 100 mg tablet 100 mg PO BID 05/25/23 05/25/23 warfarin 5 mg tablet PO 05/25/23 Allergies Allergy/AdvReac Type Severity Reaction Status Date / Time aspirin Allergy Verified 05/25/23 09:39 doxycycline Allergy Verified 05/25/23 09:39 morphine Allergy Verified 05/25/23 09:39 [facility] Social History Smoking Status: Never smoker Do you use any of these nicotine containing products: None How often do you have a drink containing alcohol: never How often do you have six or more drinks on one occasion: Never AUDIT-C Alcohol total score: 0 Non-prescribed substance use: denies use Exam Narrative: Exam Narrative: Constitutional: Appears well-developed and well-nourished. Alert. Conversant. Non toxic. HENT: Head: Atraumatic. Nose: Nose normal. Mouth/Throat: Oral mucosa is clear and moist. no trismus. Eyes: Conjunctivae normal. EOM normal. Pupils equal, round, and reactive to light. No scleral icterus. Neck: Normal range of motion. Neck supple. No tracheal deviation present. Cardiovascular: Normal rate, regular rhythm. No gallop. No friction rub. No murmur heard. Pulmonary/Chest: Effort normal. No stridor. No respiratory distress. No wheezes. No rales. No rhonchi . No tenderness. Abdominal: Soft. No distension. No mass. No tenderness. No rebound. No guarding. Musculoskeletal: RUE: Normal range of motion. No deformity LUE: Normal range of motion. No deformity RLE: Normal range of motion. No edema. No deformity LLE: Normal range of motion. No edema. No deformity Neurological: Alert and oriented to person, place, and time. Normal strength. CN II-VII intact. No sensory deficit. GCS eye subscore is 4. GCS verbal subscore is 5. GCS motor subscore is 6. Normal coordination Skin: Skin is warm and dry. No rash noted. No pallor. Normal capillary refill. Psychiatric: Normal mood. Normal affect. Const: Vital Signs, click to edit/add: Vital Signs - 24 hr 06/09/23 22:35 06/10/23 00:00 Temperature 98.6 F 98.6 F Pulse Rate [Pulse Oximeter] 121 H 95 Respiratory Rate 20 20 Blood Pressure [Ri ght Upper Arm] 131/92 H 124/82 Pulse Oximetry 98 98 Oxygen Delivery Me thod Room Air Room Air Course Vital Signs Vital signs: Initial Vital Signs Temperature 98.6 F 06/09/23 22:35 Temperature Source Temporal Artery Scan 06/09/23 22:35 Pulse Rate 121 H 06/09/23 22:35 Respiratory Rate 20 06/09/23 22:35 Blood Pressure 131/92 H 06/09/23 22:35 Blood Pressure Mean 105 06/09/23 22:35 Blood Pressure Position Sitting 06/09/23 22:35 Pulse Oximetry 98 06/09/23 22:35 Oxygen Delivery Method Room Air 06/09/23 22:35 Vital Signs Temperature 98.6 F 06/09/23 22:35 Pulse Rate 121 H 06/09/23 22:35 Respiratory Rate 20 06/09/23 22:35 Blood Pressure 131/92 H 06/09/23 22:35 Pulse Oximetry 98 06/09/23 22:35 Oxygen Delivery Method Room Air 06/09/23 22:35 Temperature 98.6 F 06/10/23 00:00 Pulse Rate 95 06/10/23 00:00 Respiratory Rate 20 06/10/23 00:00 Blood Pressure 124/82 06/10/23 00:00 Pulse Oximetry 98 06/10/23 00:00 Oxygen Delivery Method Room Air 06/10/23 00:00 Medical Decision Making MDM Narrative Medical decision making narrative: Very pleasant 73-year-old gentleman presenting to the ER today with concern after an inadvertent overdose on his short-acting insulin. He normally would take about 20 units of NovoLog after dinner but inadvertently gave himself 41 units tonight. The injection occurred about 730 or 8:00 p.m.. He try to manage his overdose at home by trying to drink and eat extra carbs. He did experience a drop of his glucose from about 250 down to 53 at home prompting his visit here. No concern for intentional self-harm or suicidal attempt. No other recent illness to suggest infection or other cause for glucose dysregulation. Initial plan was to monitor the patient here until he is past the 2-4 our peek for his NovoLog. We administered turkey sandwich and extra sugar. Sugar did well until about 12:15 a.m. when he became borderline hypoglycemic again with sugar down to 78. Additional peanut butter and juice administered. Sugar rebound appropriately. He did have another low that occurred around midnight here in the ER. This was treated with oral glucose sources. We monitored again for additional 2 hours. Was monitoring carefully with his continuous glucose monitor, which seemed to be tracking accurately. Sugar came up 150 remained stable. Patient his are comfortable manage during his blood sugars at home and can monitor for recurrent hypoglycemia. His CGM has a loud monitor that would even wake he and his up from sleep if he were to have any lows. Precautions for return to the ER reviewed. Questions answered. Lab Data Labs: Lab Results 06/09/23 Range/Units 22:30 POC Glucose 141 H (60-115) mg/dl Discharge Plan Discharge Clinical Impression: Accidental overdose of insulin Patient Disposition: Home, Self-Care Condition: Stable Instructions: Hypoglycemia in a Person with Diabetes (DC) Additional Instructions: As we discussed, monitor your blood sugar carefully. He plenty of carbs and other foods with complex carbohydrates to keep her sugar up. Your goal should be to keep her sugar above 100 today. Although we generally want to keep your sugar under tight control for your diabetes, today we would prefer that your sugar run a little high rather than dangerously low. If you eat a healthy breakfast, it would be okay to take your normal dose of NovoLog in the morning. After that, as long as your sugars are remaining stable, you should continue on your regular diabetes and insulin regimen. If you have any concerns such as more readings less than 80, or any symptoms of low sugar, call 911 or return to the ER immediately. Prescriptions: No Action losartan 50 mg tablet 50 mg PO DAILY atorvastatin 40 mg tablet 40 mg PO DAILY sertraline 100 mg tablet 100 mg PO BID warfarin 5 mg tablet PO insulin glargine [Lantus Solostar U-100 Insulin] 100 unit/mL (3 mL) insulin pen 50 unit subcut QPM Follow Up/Referrals: Meng Murray MD [Primary Care Provider] - Stand Alone Forms: [employer] Info Instructions
--- NOTE | 2023-06-10 00:38 | PC.NURSE ---
Call light on with need to use BR. Ambulate to BR with steady gait with cane. No urine sample needed at this time.
== END 2023-06-10 02:15 | disposition home or self-care (01) ==
PROVIDERS: Emergency Provider Emergency Medicine; PCP Family Medicine
DX: E09.649 Drug or chemical induced diabetes mellitus with hypoglycemia without coma (principal); Z79.4 Long term (current) use of insulin
CPT/HCPCS: 82947; 82962; 99282; 99283